=== PATIENT | female | born 1955 | race Caucasian/White ===

== ENCOUNTER 2018-07-05 09:39 | Outpatient (CLI) | payer BC, OTHER ==
[2018-07-05 12:44] LABS: BASOPHILS % (AUTO) 0.6 %; EOSINOPHILS # (AUTO) 0.1 10^3/uL (0.0-0.7); EOSINOPHILS % (AUTO) 1.2 %; HGB - HEMOGLOBIN 13.7 g/dL (12.0-16.0); LYMPHOCYTES # (AUTO) 2.2 10^3/uL (1.5-3.5); LYMPHOCYTES % (AUTO) 33.7 %; MEAN CORPUSCULAR HEMOGLOBIN 29.5 pg (27.0-31.0); MEAN CORPUSCULAR HGB CONC 33.6 g/dL (32.0-36.0); MEAN CORPUSCULAR VOLUME 87.8 fL (81.0-99.0); MEAN PLATELET VOLUME 9.1 fL (7.9-10.8); MONOCYTES # (AUTO) 0.4 10^3/uL (0.0-1.0); MONOCYTES % (AUTO) 6.1 %; NEUTROPHILS # (AUTO) 3.8 10^3/uL (1.5-6.6); NEUTROPHILS % (AUTO) 58.4 %; PLT - PLATELET COUNT 264 10^3/uL (130-450); RED BLOOD COUNT 4.66 10^6/uL (4.20-5.40); RED CELL DISTRIBUTION WIDTH 14.4 % (12.0-15.0); WHITE BLOOD COUNT 6.4 x10^3/uL (4.8-10.8)
[2018-07-05 13:00] LABS: BUN - BLOOD UREA NITROGEN 8 mg/dL (6-20); CALCIUM 9.3 mg/dL (8.5-10.3); CARBON DIOXIDE - CO2 28 mmol/L (21-32); CHLORIDE 103 mmol/L (101-111); CHOL/HDL RATIO 2.8 (<4.4); CHOLESTEROL 202 mg/dL; CREATININE 0.5 mg/dL (0.4-1.0); GFR - MDRD 125 (>89); GLUCOSE 87 mg/dL (70-100); HDL CHOLESTEROL 73 mg/dL; LDL CHOLESTEROL,CALCULATED 114 mg/dL; LDL/HDL RATIO 1.6 (<4.4); SODIUM 140 mmol/L (135-145); VLDL CHOLESTEROL 15 mg/dL
[2018-07-06 12:40] LABS: HEPATITIS C ANTIBODY NON-REACTIVE (NON-REACTIVE)
== END 2018-07-05 09:40 | disposition home or self-care (01) ==
LOC: LAB.N 09:39
PROVIDERS: ATTEND Physician Assistant Medical
DX: Z00.00 Encounter for general adult medical examination without abnormal findings (principal); R03.0 Elevated blood-pressure reading, without diagnosis of hypertension
CPT/HCPCS: 36415; 80048; 80061; 83721; 84443; 85025; 86803

== ENCOUNTER 2018-10-11 16:56 | Outpatient (CLI) | payer OTHER | END 2018-10-11 23:59 | LOC: RT.N 16:56 | PROVIDERS: ATTEND Physician Assistant Medical | DX: I49.9 Cardiac arrhythmia, unspecified (principal) | CPT/HCPCS: 93005 ==

== ENCOUNTER 2018-10-12 09:59 | Outpatient (CLI) | payer OTHER ==
[2018-10-12 12:40] LABS: BASOPHILS # (AUTO) 0.1 10^3/uL (0.0-0.1); BASOPHILS % (AUTO) 0.8 %; EOSINOPHILS # (AUTO) 0.1 10^3/uL (0.0-0.7); EOSINOPHILS % (AUTO) 1.3 %; HGB - HEMOGLOBIN 13.3 g/dL (12.0-16.0); LYMPHOCYTES # (AUTO) 2.2 10^3/uL (1.5-3.5); LYMPHOCYTES % (AUTO) 25.4 %; MEAN CORPUSCULAR HEMOGLOBIN 29.1 pg (27.0-31.0); MEAN CORPUSCULAR HGB CONC 33.4 g/dL (32.0-36.0); MEAN PLATELET VOLUME 9.4 fL (7.9-10.8); MONOCYTES # (AUTO) 0.5 10^3/uL (0.0-1.0); MONOCYTES % (AUTO) 5.8 %; NEUTROPHILS # (AUTO) 5.9 10^3/uL (1.5-6.6); NEUTROPHILS % (AUTO) 66.7 %; PLT - PLATELET COUNT 299 10^3/uL (130-450); RED BLOOD COUNT 4.58 10^6/uL (4.20-5.40); RED CELL DISTRIBUTION WIDTH 14.3 % (12.0-15.0); WHITE BLOOD COUNT 8.8 x10^3/uL (4.8-10.8)
[2018-10-12 13:41] LABS: ALBUMIN 4.5 g/dL (3.2-5.5); ALBUMIN/GLOBULIN RATIO 1.4 (1.0-2.2); BILIRUBIN,TOTAL 0.3 mg/dL (0.2-1.0); CALCIUM 9.5 mg/dL (8.5-10.3); CREATININE 0.6 mg/dL (0.4-1.0); TOTAL PROTEIN 7.7 g/dL (6.7-8.2)
== END 2018-10-12 23:59 | disposition home or self-care (01) ==
LOC: LAB.N 09:59
PROVIDERS: ATTEND Physician Assistant Medical
DX: I51.7 Cardiomegaly (principal)
CPT/HCPCS: 36415; 80053; 83880; 85025

== ENCOUNTER 2018-10-16 10:26 | Outpatient (CLI) | payer OTHER | END 2018-10-16 10:27 | disposition home or self-care (01) | LOC: DI 10:26 | PROVIDERS: ATTEND Physician Assistant Medical | DX: I51.7 Cardiomegaly (principal); I49.9 Cardiac arrhythmia, unspecified | CPT/HCPCS: 93306 ==

== ENCOUNTER 2020-04-28 08:10 | Outpatient (CLI) | payer OTHER ==
[2020-04-28 12:10] LABS: BASOPHILS % (AUTO) 0.5 %; EOSINOPHILS # (AUTO) 0.1 10^3/uL (0.0-0.7); EOSINOPHILS % (AUTO) 0.7 %; HGB - HEMOGLOBIN 13.5 g/dL (12.0-16.0); MEAN CORPUSCULAR HEMOGLOBIN 28.3 pg (27.0-31.0); MEAN CORPUSCULAR HGB CONC 31.1 g/dL (32.0-36.0); MEAN PLATELET VOLUME 10.9 fL (7.9-10.8); MONOCYTES # (AUTO) 0.4 10^3/uL (0.0-1.0); MONOCYTES % (AUTO) 5.1 %; NEUTROPHILS # (AUTO) 5.7 10^3/uL (1.5-6.6); NEUTROPHILS % (AUTO) 69.5 %; PLT - PLATELET COUNT 298 10^3/uL (130-450); RED BLOOD COUNT 4.77 10^6/uL (4.20-5.40); RED CELL DISTRIBUTION WIDTH 13.7 % (12.0-15.0); WHITE BLOOD COUNT 8.2 x10^3/uL (4.8-10.8)
[2020-04-28 12:24] LABS: ALBUMIN 4.5 g/dL (3.2-5.5); ALBUMIN/GLOBULIN RATIO 1.5 (1.0-2.2); ALKALINE PHOSPHATASE 83 IU/L (42-121); ALT ALANINE AMINOTRANSFERASE 21 IU/L (10-60); AST ASPARTATE AMINOTRANSFERASE 22 IU/L (10-42); BILIRUBIN,TOTAL 0.6 mg/dL (0.2-1.0); BUN - BLOOD UREA NITROGEN 9 mg/dL (6-20); CALCIUM 9.5 mg/dL (8.5-10.3); CARBON DIOXIDE - CO2 29 mmol/L (21-32); CHLORIDE 103 mmol/L (101-111); CHOL/HDL RATIO 3.2 (<4.4); CHOLESTEROL 248 mg/dL; CREATININE 0.6 mg/dL (0.4-1.0); GLUCOSE 93 mg/dL (70-100); HDL CHOLESTEROL 78 mg/dL; LDL CHOLESTEROL,CALCULATED 156 mg/dL; SODIUM 141 mmol/L (135-145); TOTAL PROTEIN 7.6 g/dL (6.7-8.2); VLDL CHOLESTEROL 14 mg/dL
== END 2020-04-28 23:59 | disposition home or self-care (01) ==
LOC: LAB.WCP 08:10
PROVIDERS: ATTEND Nurse Practitioner Family
DX: Z00.00 Encounter for general adult medical examination without abnormal findings (principal)
CPT/HCPCS: 36415; 80053; 80061; 83721; 84443; 85025

== ENCOUNTER 2020-12-25 08:00 | Outpatient (CLI) | payer OTHER ==
[2020-12-25 17:51] LABS: BASOPHILS # (AUTO) 0.1 10^3/uL (0.0-0.1); BASOPHILS % (AUTO) 0.6 %; EOSINOPHILS # (AUTO) 0.2 10^3/uL (0.0-0.7); EOSINOPHILS % (AUTO) 2.3 %; HCT - HEMATOCRIT 42.2 % (37.0-47.0); HGB - HEMOGLOBIN 13.1 g/dL (12.0-16.0); LYMPHOCYTES # (AUTO) 2.3 10^3/uL (1.5-3.5); LYMPHOCYTES % (AUTO) 29.8 %; MEAN CORPUSCULAR HEMOGLOBIN 28.5 pg (27.0-31.0); MEAN CORPUSCULAR VOLUME 91.7 fL (81.0-99.0); MEAN PLATELET VOLUME 11.4 fL (7.9-10.8); MONOCYTES # (AUTO) 0.5 10^3/uL (0.0-1.0); MONOCYTES % (AUTO) 6.3 %; NEUTROPHILS # (AUTO) 4.7 10^3/uL (1.5-6.6); NEUTROPHILS % (AUTO) 60.7 %; PLT - PLATELET COUNT 232 10^3/uL (130-450); RED CELL DISTRIBUTION WIDTH 13.3 % (12.0-15.0); WHITE BLOOD COUNT 7.8 x10^3/uL (4.8-10.8)
[2020-12-25 18:20] LABS: THYROID STIMULATING HORMONE 0.49 uIU/mL (0.34-5.60)
== END 2020-12-25 23:59 | disposition home or self-care (01) ==
LOC: LAB.WCP 08:00
PROVIDERS: ATTEND Nurse Practitioner Family
DX: L64.8 Other androgenic alopecia (principal)
CPT/HCPCS: 36415; 84443; 85025

== ENCOUNTER 2021-03-03 08:00 | Outpatient (CLI) | payer OTHER ==
[2021-03-03 18:19] LABS: BASOPHILS # (AUTO) 0.1 10^3/uL (0.0-0.1); BASOPHILS % (AUTO) 0.6 %; EOSINOPHILS # (AUTO) 0.2 10^3/uL (0.0-0.7); EOSINOPHILS % (AUTO) 1.5 %; HCT - HEMATOCRIT 43.9 % (37.0-47.0); HGB - HEMOGLOBIN 14.1 g/dL (12.0-16.0); LYMPHOCYTES # (AUTO) 2.7 10^3/uL (1.5-3.5); LYMPHOCYTES % (AUTO) 26.6 %; MEAN CORPUSCULAR HGB CONC 32.1 g/dL (32.0-36.0); MEAN CORPUSCULAR VOLUME 90.3 fL (81.0-99.0); MEAN PLATELET VOLUME 10.9 fL (7.9-10.8); MONOCYTES # (AUTO) 0.5 10^3/uL (0.0-1.0); MONOCYTES % (AUTO) 4.8 %; NEUTROPHILS # (AUTO) 6.7 10^3/uL (1.5-6.6); NEUTROPHILS % (AUTO) 66.2 %; PLT - PLATELET COUNT 308 10^3/uL (130-450); RED BLOOD COUNT 4.86 10^6/uL (4.20-5.40); RED CELL DISTRIBUTION WIDTH 13.4 % (12.0-15.0); WHITE BLOOD COUNT 10.1 x10^3/uL (4.8-10.8)
[2021-03-03 18:46] LABS: CREATININE,URINE 41.1 mg/dL; MICROALBUM/CREATININE RATIO,UR 306.6 ug/mg (<30.0); MICROALBUMIN,URINE 12.6 mg/dL (0-300.0)
[2021-03-03 18:52] LABS: THYROID STIMULATING HORMONE 1.1 uIU/mL (0.34-5.60)
[2021-03-03 18:54] LABS: FREE T4 (FREE THYROXINE) 0.94 ng/dL (0.58-1.64)
[2021-03-03 18:58] LABS: FERRITIN 45.9 ng/mL (11.0-306.8)
[2021-03-03 19:03] LABS: % IRON SATURATION 11 % (20-50); IRON 52 ug/dL (28-170); TOTAL IRON BINDING CAPACITY 461 ug/dL (250-450); TRANSFERRIN 329 mg/dL (192-382)
[2021-03-03 19:35] LABS: CRP - C-REACTIVE PROTEIN < 1.0 mg/dL (0-1.0)
== END 2021-03-03 23:59 | disposition home or self-care (01) ==
LOC: LAB.WCP 08:00
PROVIDERS: ATTEND Nurse Practitioner
DX: L64.8 Other androgenic alopecia (principal); R53.83 Other fatigue
CPT/HCPCS: 36415; 82043; 82570; 82728; 83540; 84439; 84443; 84466; 85025; 85651; 86140

== ENCOUNTER 2021-04-23 07:17 | Outpatient (CLI) | payer OTHER ==
--- NOTE | 2021-04-23 15:15 | XRAY Report ---
PROCEDURE: Chest 2 View X-Ray INDICATIONS: COUGH, FEVER TECHNIQUE: 2 view(s) of the chest. COMPARISON: None. FINDINGS: Surgical changes and devices: None. Lungs and pleura: No pleural effusions or pneumothorax. Patchy left basilar opacity is present. Mediastinum: Mediastinal contours are normal. Heart size is normal. Bones and chest wall: No suspicious bony abnormalities. Soft tissues appear unremarkable. Wedge de formity is present at the level of T11 of indeterminate age. IMPRESSION: Patchy left basilar opacity is noted suggestive of pneumonia. Reviewed by: Hoda Long MD on 04/23/2021 3:14 PM PDT Approved by: Hoda Long MD on 04/23/2021 3:14 PM PDT Station ID: [id number]
== END 2021-04-23 23:59 | disposition home or self-care (01) ==
LOC: DI.N 07:17
PROVIDERS: ATTEND Family Medicine
DX: U07.1 COVID-19 (principal)

== ENCOUNTER 2021-05-11 08:58 | Outpatient (CLI) | payer OTHER ==
--- NOTE | 2021-05-11 10:01 | XRAY Report ---
PROCEDURE: Chest 2 View X-Ray INDICATIONS: COUGH TECHNIQUE: 2 view(s) of the chest. COMPARISON: None. FINDINGS: Surgical changes and devices: None. Lungs and pleura: No pleural effusions or pneumothorax. Chronic emphysematous changes are noted in b ilateral lung [place] with increased interstitial reticular lung markings. Subtle opacities at bilater al lung bases are seen suggestive of bibasilar atelectasis/small infiltrates. Mediastinum: Mediastinal contours are normal. Heart size is normal. Bones and chest wall: No suspicious bony abnormalities. Soft tissues appear unremarkable. IMPRESSION: COPD and suggestion of bibasilar small infiltrates/atelectasis. No pleural effusion or p neumothorax. Reviewed by: Chad Carrasco MD on 05/11/2021 10:00 AM PDT Approved by: Chad Carrasco MD on 05/11/2021 10:00 AM PDT Station ID: [id number]
== END 2021-05-11 23:59 | disposition home or self-care (01) ==
LOC: DI.N 08:58
PROVIDERS: ATTEND Family Medicine
DX: J44.9 Chronic obstructive pulmonary disease, unspecified (principal)

== ENCOUNTER 2021-06-10 12:26 | Outpatient (CLI) | payer OTHER ==
[2021-06-10 17:45] LABS: BASOPHILS # (AUTO) 0.1 10^3/uL (0.0-0.1); BASOPHILS % (AUTO) 0.5 %; EOSINOPHILS # (AUTO) 0.4 10^3/uL (0.0-0.7); HCT - HEMATOCRIT 35.7 % (37.0-47.0); LYMPHOCYTES # (AUTO) 1.5 10^3/uL (1.5-3.5); LYMPHOCYTES % (AUTO) 7.9 %; MEAN CORPUSCULAR HEMOGLOBIN 27.8 pg (27.0-31.0); MEAN CORPUSCULAR HGB CONC 30.8 g/dL (32.0-36.0); MEAN CORPUSCULAR VOLUME 90.4 fL (81.0-99.0); MEAN PLATELET VOLUME 10.4 fL (7.9-10.8); MONOCYTES # (AUTO) 0.7 10^3/uL (0.0-1.0); MONOCYTES % (AUTO) 3.7 %; NEUTROPHILS # (AUTO) 16.4 10^3/uL (1.5-6.6); NEUTROPHILS % (AUTO) 85.1 %; PLT - PLATELET COUNT 598 10^3/uL (130-450); RED BLOOD COUNT 3.95 10^6/uL (4.20-5.40); RED CELL DISTRIBUTION WIDTH 14.7 % (12.0-15.0); WHITE BLOOD COUNT 19.3 x10^3/uL (4.8-10.8)
[2021-06-10 18:09] LABS: ALBUMIN 3.6 g/dL (3.2-5.5); ALBUMIN/GLOBULIN RATIO 0.8 (1.0-2.2); BILIRUBIN,TOTAL 0.5 mg/dL (0.2-1.0); CALCIUM 9.5 mg/dL (8.5-10.3); CREATININE 0.5 mg/dL (0.4-1.0); POTASSIUM 4.3 mmol/L (3.5-5.0)
[2021-06-10 18:21] LABS: THYROID STIMULATING HORMONE 0.46 uIU/mL (0.34-5.60)
== END 2021-06-10 23:59 | disposition home or self-care (01) ==
LOC: LAB.WCP 12:26
PROVIDERS: ATTEND Family Medicine
DX: R06.09 Other forms of dyspnea (principal); R60.9 Edema, unspecified
CPT/HCPCS: 36415; 80053; 83880; 84443; 85025; 85379

== ENCOUNTER 2021-06-11 07:50 | Emergency (ER) | payer OTHER ==
[2021-06-11] MEDS ORDERED: SODIUM CHLORIDE 0.9% 1,000 ML IV STA (08:34)
[2021-06-11] MEDS ORDERED: IOVERSOL 320 100 ML VIAL IVP ONE ×2 (08:45→11:26)
[2021-06-11 09:05] LABS: BASOPHILS # (AUTO) 0.1 10^3/uL (0.0-0.1); BASOPHILS % (AUTO) 0.6 %; EOSINOPHILS # (AUTO) 0.3 10^3/uL (0.0-0.7); EOSINOPHILS % (AUTO) 1.7 %; HCT - HEMATOCRIT 36.1 % (37.0-47.0); HGB - HEMOGLOBIN 11.3 g/dL (12.0-16.0); LYMPHOCYTES # (AUTO) 1.6 10^3/uL (1.5-3.5); LYMPHOCYTES % (AUTO) 10.2 %; MEAN CORPUSCULAR HEMOGLOBIN 28.1 pg (27.0-31.0); MEAN CORPUSCULAR HGB CONC 31.3 g/dL (32.0-36.0); MEAN CORPUSCULAR VOLUME 89.8 fL (81.0-99.0); MEAN PLATELET VOLUME 10.5 fL (7.9-10.8); MONOCYTES # (AUTO) 0.8 10^3/uL (0.0-1.0); MONOCYTES % (AUTO) 5.1 %; NEUTROPHILS % (AUTO) 81.9 %; PLT - PLATELET COUNT 493 10^3/uL (130-450); RED BLOOD COUNT 4.02 10^6/uL (4.20-5.40); RED CELL DISTRIBUTION WIDTH 14.7 % (12.0-15.0); WHITE BLOOD COUNT 15.9 x10^3/uL (4.8-10.8)
[2021-06-11 09:12] LABS: INR 1.1 (0.8-1.2); PT - PROTHROMBIN TIME 12.7 secs (9.9-12.6)
--- NOTE | 2021-06-11 09:15 | ED Physician Documentation ---
History of Present Illness - Stated complaint Stated Complaint: LEG SWELLING/SENT BY DR - Chief complaint Chief Complaint: General - History obtained from History obtained from: Patient - Additonal information Additional information: Patient is a 65-year-old female presenting to the emergency department today with complaint of left lower extremity swelling as well as persistent cough and chest discomfort. Patient is a past medical history significant for chronic lower extremity swelling. Reports has had worsening swelling in the left lower extremity compared to the right. Also reports was diagnosed with the novel coronavirus which was complicated by Covid pneumonia in early April. States since that time has had persistent nonproductive cough which has also had intermittent episodes of chest pressure associated with coughing. Was seen by Dr. Noyola yesterday and had labs drawn which demonstrated a significant leukocytosis as well as a positive D-dimer and was told to come in to the emergency department. Reports today she otherwise feels well and denies any specific shortness of breath, chest pain, chest pressure, hemoptysis. 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 Also reports a daily topical steroid use for alopecia but denies taking any other medications. Reports sensitivity to chemicals but denies any specific allergic reactions in the past to medications or contrast agents. Otherwise denies for any fever, chills, headache, blurred vision, abdominal pain, nausea, vomiting, diarrhea, constipation Review of Systems Ten Systems: 10 systems reviewed and negative Constitutional: denies: Fever Eyes: denies: Loss of vision Ears: denies: Loss of hearing Nose: denies: Rhinorrhea / runny nose Cardiac: reports: Chest pain / pressure Respiratory: reports: Cough. 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), Other Other Past Medical History: chronic bilateral lower leg edema, placentia previa - Present Medications Home Medications: Ambulatory Orders Medication Instructions Recorded Confirmed Azithromycin [Zithromax] 250 mg PO DAILY #4 tablet 06/11/21 Benzonatate [Tessalon] 200 mg PO TID PRN #30 cap 06/11/21 - Allergies Allergies/Adverse Reactions: Allergies Allergy/AdvReac Type Severity Reaction Status Date / Time No Known Drug Allergies Allergy Verified 06/11/21 08:02 - Social History Does the pt smoke?: No Smoking Status: Never smoker Does the pt drink ETOH?: No Does the pt have substance abuse?: No - Immunizations Immunizations are current?: Yes PD ED PE NORMAL - Vitals Vital signs reviewed: Yes (Tachycardic) - General General: Alert and oriented X 3, Other - HEENT HEENT: Atraumatic, PERRL, EOMI, Ears normal, Moist mucous membranes - Neck Neck: Supple, no meningeal sign, No bony TTP - Cardiac Cardiac: RRR, No murmur, No gallop, No rub, Strong equal pulses - Respiratory Respiratory: No respiratory distress, Clear bilaterally - Abdomen Abdomen: Normal bowel sounds, Soft - Female Female : Deferred - Rectal Rectal: Deferred - Derm Derm: Normal color - Extremities Extremities: No deformity - Neuro Neuro: Alert and oriented X 3, 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, No motor deficit Eye Opening: Spontaneous Motor: Obeys Commands Verbal: Oriented GCS Score: 15 - Psych Psych: Normal mood Results - Vitals Vitals: Vital Signs - 24 hr 06/11/21 06/11/21 07:53 11:39 Temperature 36.9 C Heart Rate 122 H 102 H Respiratory 15 18 Rate Blood Pressure 146/71 H 155/79 H O2 Saturation 99 97 Oxygen O2 Source Room air - EKG (time done) No standard instances Rate: Rate (enter#) (109) Rhythm: NSR [place]: Normal Intervals: Normal SD QRS: Normal Ischemia: Normal ST segments Computer interpretation: Agree with computer - Labs Labs: Laboratory Tests 06/11/21 06/11/21 06/11/21 08:50 08:50 08:50 WBC 15.9 H RBC 4.02 L Hgb 11.3 L Hct 36.1 L MCV 89.8 MCH 28.1 MCHC 31.3 L RDW 14.7 Plt Count 493 H MPV 10.5 Neut # (Auto) 13.0 H Lymph # (Auto) 1.6 [place] # (Auto) 0.8 Eos # (Auto) 0.3 Baso # (Auto) 0.1 Absolute Nucleated RBC 0.00 Nucleated RBC % 0.0 PT 12.7 H INR 1.1 Sodium 138 Potassium 3.9 Chloride 103 Carbon Dioxide 24 Anion Gap 11.0 BUN 14 Creatinine 0.5 Estimated GFR (MDRD) 124 Glucose 82 Lactic Acid Calcium 9.2 Magnesium 2.1 Total Bilirubin 0.6 AST 28 ALT 20 Alkaline Phosphatase 87 Troponin I High Sens B-Natriuretic Peptide Total Protein 7.8 Albumin 3.7 Globulin 4.1 Albumin/Globulin Ratio 0.9 L Lipase 40 TSH Urine Color Urine Clarity Urine pH Ur Specific [place] Urine Protein Urine Glucose (UA) Urine Ketones Urine Occult Blood Urine Nitrite Urine Bilirubin Urine Urobilinogen Ur Leukocyte Esterase Ur Microscopic Review Urine Culture Comments 06/11/21 06/11/21 06/11/21 08:50 08:50 08:50 WBC RBC Hgb Hct MCV MCH MCHC RDW Plt Count MPV Neut # (Auto) Lymph # (Auto) [place] # (Auto) Eos # (Auto) Baso # (Auto) Absolute Nucleated RBC Nucleated RBC % PT INR Sodium Potassium Chloride Carbon Dioxide Anion Gap BUN Creatinine Estimated GFR (MDRD) Glucose Lactic Acid 1.0 Calcium Magnesium Total Bilirubin AST ALT Alkaline Phosphatase Troponin I High Sens B-Natriuretic Peptide 57 Total Protein Albumin Globulin Albumin/Globulin Ratio Lipase TSH 0.43 Urine Color Urine Clarity Urine pH Ur Specific [place] Urine Protein Urine Glucose (UA) Urine Ketones Urine Occult Blood Urine Nitrite Urine Bilirubin Urine Urobilinogen Ur Leukocyte Esterase Ur Microscopic Review Urine Culture Comments 06/11/21 06/11/21 08:50 11:00 WBC RBC Hgb Hct MCV MCH MCHC RDW Plt Count MPV Neut # (Auto) Lymph # (Auto) [place] # (Auto) Eos # (Auto) Baso # (Auto) Absolute Nucleated RBC Nucleated RBC % PT INR Sodium Potassium Chloride Carbon Dioxide Anion Gap BUN Creatinine Estimated GFR (MDRD) Glucose Lactic Acid Calcium Magnesium Total Bilirubin AST ALT Alkaline Phosphatase Troponin I High Sens 3.3 B-Natriuretic Peptide Total Protein Albumin Globulin Albumin/Globulin Ratio Lipase TSH Urine Color YELLOW Urine Clarity CLEAR Urine pH 6.0 Ur Specific [place] <=1.005 Urine Protein NEGATIVE Urine Glucose (UA) NEGATIVE Urine Ketones TRACE Urine Occult Blood TRACE-INTA Urine Nitrite NEGATIVE Urine Bilirubin NEGATIVE Urine Urobilinogen 0.2 (NORMAL) Ur Leukocyte Esterase NEGATIVE Ur Microscopic Review NOT INDICATED Urine Culture Comments NOT INDICATED PD MEDICAL DECISION MAKING - ED course Complexity details: reviewed old records, reviewed results, re-evaluated patient, d/w patient ED course: Patient presents referred by their primary care physician for an elevated white blood cell count and a positive D-dimer in a setting of chronic lower extremity swelling as well as recent COVID-19 pneumonia. Patient had a low level tachycardia here in the department but was otherwise afebrile, hemodynamically stable and in no acute distress. Had normal respirations throughout all of her lung [place]. Her physical exam did demonstrate some mild lower extremity edema left greater than right. Did report a history of systemic steroid use greater than 1 month ago for dermatologic condition as well as ongoing topical steroid use along the lower aspect of her scalp for the same condition however given that it was greater than 1 month ago since her last use I do not believe that this could have caused her current leukocytosis. Previous labs reviewed demonstrated a leukocytosis greater than 20 yesterday. I did obtain labs in the emergency department today which demonstrated downtrending white blood cell count. The remainder of her lab work was within normal limits. Ultrasonography of her lower extremities bilaterally was negative for any DVT and CT imaging of her chest demonstrated lower bibasilar pneumonia. Did discuss all these findings directly with the patient as well as the importance of interval follow- up imaging in order to evaluate for any possible underlying neoplastic process. She was given azithromycin while in the emergency department. She was observed in the emergency department for several hours and at no time demonstrated any significant respiratory distress. She will be discharged with a course of antibiotics and instructions to follow-up carefully with primary care or return to the emergency department for new or worsening symptoms. Departure - Departure Disposition: 01 Home, Self Care Clinical Impression: Pneumonia Condition: Good Instructions: Pneumonia Dc Prescriptions: Benzonatate [Tessalon] 200 mg PO TID PRN #30 cap PRN Reason: Cough Azithromycin [Zithromax] 250 mg PO DAILY #4 tablet Comments: Thank you for allowing us to care for you today at [facility]. I would like you to begin a course of oral antibiotics. This will be sent to [facility] in [place] for you to pick up attendant later this afternoon. You will need to take your next dose tomorrow. Please follow-up carefully with your primary care doctor. If it anytime you have any new or worsening symptoms please not hesitate to return to the emergency department. Discharge Date/Time: 06/11/21 11:52
[2021-06-11 09:24] LABS: ALBUMIN 3.7 g/dL (3.2-5.5); ALBUMIN/GLOBULIN RATIO 0.9 (1.0-2.2); BILIRUBIN,TOTAL 0.6 mg/dL (0.2-1.0); CALCIUM 9.2 mg/dL (8.5-10.3); CREATININE 0.5 mg/dL (0.4-1.0); MAGNESIUM 2.1 mg/dL (1.7-2.8); POTASSIUM 3.9 mmol/L (3.5-5.0); TOTAL PROTEIN 7.8 g/dL (6.7-8.2)
--- NOTE | 2021-06-11 10:12 | Ultrasound Report ---
PROCEDURE: Duplex Ext Veins Bilateral INDICATIONS: Chronic bilateral lower extremity edema. TECHNIQUE: Real-time imaging, as well as color and pulse Doppler interrogation, were performed of the deep veins of both legs from the inguinal ligament to the popliteal fossa. COMPARISON: None. FINDINGS: VASCULATURE: Normal spontaneous flow and phasicity, augmentation and waveforms, and compressibility o f the vessels from the common femoral veins through the calf veins. SOFT TISSUES: No acute abnormality. IMPRESSION: 1.No sonographic evidence of deep venous thrombus. Reviewed by: Miguelito Weeks MD on 06/11/2021 10:11 AM PDT Approved by: Miguelito Weeks MD on 06/11/2021 10:11 AM PDT Station ID: [id number]
--- NOTE | 2021-06-11 10:41 | CT Report ---
PROCEDURE: ANGIO CHEST W/WO INDICATIONS: r/o PE vs PNA CONTRAST: IV CONTRAST: Optiray 320 ml: 80 PO CONTRAST: *NO PO CONTRAST TECHNIQUE: After the administration of intravenous contrast, 2 mm axial images were acquired from the pulmonary apices to the posterior costophrenic angles during the arterial phase. In addition, 1 mm lung kernel and 5 mm soft tissue kernel reconstructions were performed. 3-dimensional coronal oblique maximum int ensity projection (MIP) reformats, 8 mm axial MIP, and 5 mm coronal and sagittal MPR reformats were t hen performed through the thorax. For radiation dose reduction, the following was used: automated exp osure control, adjustment of mA and/or kV according to patient size. COMPARISON: Chest x-ray 05/11/2021. FINDINGS: Image quality: Excellent. Pulmonary arteries: Pulmonary arteries are normal in size, and demonstrate no intraluminal filling d efects to suggest central pulmonary embolism. Lungs and pleura: Patchy areas of consolidation noted in the lung bases bilaterally involving the low er lobes and right middle lobe. Small 1-2 mm punctate calcifications noted in the lungs bilaterally c ompatible sequela of prior granulomatous disease. No pleural effusions or pneumothorax. Central and peripheral airways are patent. Mediastinum: Heart size is normal, without pericardial effusion. Enlarged right hilar and subcarinal mediastinal lymph nodes are noted. Thoracic aorta is normal in caliber and enhancement. Esophagus i s normal in caliber. Small hiatal hernia noted. Bones and chest wall: No suspicious bony lesions. Ribs and thoracic spine appear intact throughout. Spine degenerative disc disease and facet arthropathy are noted. No axillary or supraclavicular yinka nopathy. The thyroid is normal in size and there are no incidental findings. Abdomen: Visualized upper abdominal solid organs appear normal in the early arterial phase of enhanc ement. IMPRESSION: 1. No pulmonary embolus. 2. Bibasilar pneumonia. Recommend follow-up imaging to resolution of the areas of consolidation to ex clude underlying neoplastic process. 3. Right hilar and mediastinal lymphadenopathy which could be reactive or neoplastic. Reviewed by: Yisel Fish MD, PhD on 06/11/2021 9:40 AM [facility] Approved by: Yisel Fish MD, PhD on 06/11/2021 9:40 AM [facility] Station ID: [id number]
[2021-06-11] MEDS ORDERED: AZITHROMYCIN 250 MG TABLET PO STA (10:59)
[2021-06-11 11:16] LABS: BILIRUBIN,URINE NEGATIVE (NEGATIVE); GLUCOSE, URINE (UA) NEGATIVE (NEGATIVE); KETONES,URINE (UA) TRACE mg/dL (NEGATIVE); LEUKOCYTE ESTERASE, URINE NEGATIVE (NEGATIVE); NITRITE,URINE NEGATIVE (NEGATIVE); OCCULT BLOOD,URINE TRACE-INTA (NEGATIVE); PROTEIN,URINE NEGATIVE (NEGATIVE); UROBILINOGEN,URINE 0.2 (NORMAL) E.U./dL (NORMAL)
[2021-06-11 11:18] LABS: CLARITY,URINE CLEAR (CLEAR)
[2021-06-11 12:09] VITALS: BP 153/68
== END 2021-06-11 12:14 | disposition home or self-care (01) ==
LOC: ED 07:50
DX: J18.9 Pneumonia, unspecified organism (principal); D72.829 Elevated white blood cell count, unspecified; Z86.16 Personal history of COVID-19; R00.0 Tachycardia, unspecified
CPT/HCPCS: 36415; 71275; 80053; 81003; 83605; 83690; 83735; 83880; 84443; 84484; 85025; 85610; 93005; 93970; 99284; A9270; Q9967; 81001; 87086

== ENCOUNTER 2021-06-23 12:16 | Outpatient (CLI) | payer OTHER ==
[2021-06-23 18:23] LABS: BASOPHILS # (AUTO) 0.1 10^3/uL (0.0-0.1); BASOPHILS % (AUTO) 0.9 %; EOSINOPHILS # (AUTO) 0.5 10^3/uL (0.0-0.7); EOSINOPHILS % (AUTO) 3.5 %; HCT - HEMATOCRIT 38.5 % (37.0-47.0); HGB - HEMOGLOBIN 11.7 g/dL (12.0-16.0); LYMPHOCYTES # (AUTO) 2.1 10^3/uL (1.5-3.5); LYMPHOCYTES % (AUTO) 15.3 %; MEAN CORPUSCULAR HEMOGLOBIN 27.5 pg (27.0-31.0); MEAN CORPUSCULAR HGB CONC 30.4 g/dL (32.0-36.0); MEAN CORPUSCULAR VOLUME 90.6 fL (81.0-99.0); MEAN PLATELET VOLUME 10.5 fL (7.9-10.8); MONOCYTES # (AUTO) 0.8 10^3/uL (0.0-1.0); MONOCYTES % (AUTO) 5.6 %; NEUTROPHILS # (AUTO) 10.3 10^3/uL (1.5-6.6); NEUTROPHILS % (AUTO) 74.3 %; PLT - PLATELET COUNT 479 10^3/uL (130-450); RED BLOOD COUNT 4.25 10^6/uL (4.20-5.40); RED CELL DISTRIBUTION WIDTH 15.4 % (12.0-15.0); WHITE BLOOD COUNT 13.8 x10^3/uL (4.8-10.8)
== END 2021-06-23 23:59 | disposition home or self-care (01) ==
LOC: LAB.WCP 12:16
PROVIDERS: ATTEND Family Medicine
DX: D72.829 Elevated white blood cell count, unspecified (principal)
CPT/HCPCS: 36415; 85025

== ENCOUNTER 2023-03-15 15:05 | Outpatient (CLI) | payer MEDICARE ==
[2023-03-15] MEDS ORDERED: ALBUTEROL 1 PUFF INH STA (18:02)
== END 2023-03-15 15:06 | disposition home or self-care (01) ==
LOC: RT 15:05
PROVIDERS: ATTEND Nurse Practitioner
DX: R06.02 Shortness of breath (principal)
CPT/HCPCS: 94060; 94727; 94729

== ENCOUNTER 2023-07-19 07:24 | Outpatient (CLI) | payer MEDICARE ==
[2023-07-19 11:38] LABS: BASOPHILS # (AUTO) 0.1 10^3/uL (0.0-0.1); BASOPHILS % (AUTO) 0.6 %; EOSINOPHILS % (AUTO) 0.4 %; HCT - HEMATOCRIT 43.5 % (37.0-47.0); HGB - HEMOGLOBIN 13.5 g/dL (12.0-16.0); LYMPHOCYTES # (AUTO) 2.7 10^3/uL (1.5-3.5); LYMPHOCYTES % (AUTO) 28.8 %; MEAN CORPUSCULAR HEMOGLOBIN 27.8 pg (27.0-31.0); MEAN CORPUSCULAR VOLUME 89.5 fL (81.0-99.0); MEAN PLATELET VOLUME 11.5 fL (7.9-10.8); MONOCYTES # (AUTO) 0.5 10^3/uL (0.0-1.0); MONOCYTES % (AUTO) 5.2 %; NEUTROPHILS % (AUTO) 64.7 %; PLT - PLATELET COUNT 305 10^3/uL (130-450); RED BLOOD COUNT 4.86 10^6/uL (4.20-5.40); RED CELL DISTRIBUTION WIDTH 13.9 % (12.0-15.0); WHITE BLOOD COUNT 9.3 x10^3/uL (4.8-10.8)
[2023-07-19 12:28] LABS: ALBUMIN 4.8 g/dL (3.2-5.5); ALBUMIN/GLOBULIN RATIO 1.4 (1.0-2.2); ALKALINE PHOSPHATASE 90 IU/L (42-121); ALT ALANINE AMINOTRANSFERASE 19 IU/L (10-60); AST ASPARTATE AMINOTRANSFERASE 25 IU/L (10-42); BILIRUBIN,TOTAL 0.3 mg/dL (0.2-1.0); BUN - BLOOD UREA NITROGEN 11 mg/dL (6-20); CALCIUM 10.1 mg/dL (8.5-10.3); CARBON DIOXIDE - CO2 27 mmol/L (21-32); CHLORIDE 105 mmol/L (101-111); CHOL/HDL RATIO 3.4 (<4.4); CHOLESTEROL 258 mg/dL; CREATININE 0.5 mg/dL (0.6-1.3); GFR - MDRD 123 (>89); GLUCOSE 95 mg/dL (74-104); HDL CHOLESTEROL 75 mg/dL; LDL CHOLESTEROL,CALCULATED 157 mg/dL; LDL/HDL RATIO 2.1 (<4.4); POTASSIUM 3.5 mmol/L (3.5-4.5); SODIUM 141 mmol/L (135-145); TOTAL PROTEIN 8.3 g/dL (6.4-8.9); TRIGLYCERIDES 128 mg/dL (48-352); VLDL CHOLESTEROL 26 mg/dL
[2023-07-19 12:37] LABS: THYROID STIMULATING HORMONE 0.71 uIU/mL (0.34-5.60)
== END 2023-07-19 07:25 | disposition home or self-care (01) ==
LOC: LAB.N 07:24
PROVIDERS: ATTEND Nurse Practitioner
DX: E78.5 Hyperlipidemia, unspecified (principal); R06.02 Shortness of breath; L64.8 Other androgenic alopecia
CPT/HCPCS: 36415; 80053; 80061; 83721; 84443; 85025

== ENCOUNTER 2023-11-04 08:00 | Outpatient (CLI) | payer MEDICARE | END 2023-11-04 08:01 | disposition home or self-care (01) | LOC: LAB.N 08:00 | PROVIDERS: ATTEND Physician Assistant | DX: R05.1 Acute cough (principal) ==

== ENCOUNTER 2023-11-04 08:00 | Outpatient (CLI) | payer MEDICARE ==
--- NOTE | 2023-11-04 20:18 | XRAY Report ---
PROCEDURE: Chest 2V INDICATIONS: ACUTE COUGH TECHNIQUE: 2 views of the chest were acquired. COMPARISON: 06/11/2021, 05/11/2021. FINDINGS: Surgical changes and devices: None. Lungs and pleura: New peripheral right airspace opacity measuring 2 cm. Mediastinum: Mediastinal contours appear normal. Heart size is normal. Bones and chest wall: No suspicious bony lesions. Overlying soft tissues appear unremarkable. IMPRESSION: New 2 cm right peripheral airspace opacity. Differential includes focus of infection versus malignanc y. Recommend chest CT for complete characterization. Reviewed by: John Walker MD on 11/04/2023 8:16 PM PDT Approved by: John Walker MD on 11/04/2023 8:16 PM PDT Station ID: [id number]
== END 2023-11-04 08:15 | disposition home or self-care (01) ==
LOC: DI.N 08:00
PROVIDERS: ATTEND Physician Assistant Medical
DX: R05.1 Acute cough (principal); R91.8 Other nonspecific abnormal finding of lung field

== ENCOUNTER 2023-12-12 08:17 | Outpatient (CLI) | payer MEDICARE ==
[2023-12-12] MEDS ORDERED: iohexoL-300 100 ML VIAL ONE (09:07)
[2023-12-12 09:08] LABS: CHOL/HDL RATIO 3.2 (<4.4); CHOLESTEROL 235 mg/dL; CREATININE 0.5 mg/dL (0.6-1.3); HDL CHOLESTEROL 73 mg/dL; LDL CHOLESTEROL,CALCULATED 145 mg/dL; TRIGLYCERIDES 84 mg/dL (48-352); VLDL CHOLESTEROL 17 mg/dL
[2023-12-12] MEDS: iohexoL-300 100 ML VIAL IVP ONE (10:48)
--- NOTE | 2023-12-12 13:05 | CT Report ---
PROCEDURE: Chest W INDICATIONS: ABN CHEST XRAY CONTRAST: Omni 300 100ml TECHNIQUE: After the administration of intravenous contrast, a CT scan of the chest was performed. Images were recorded and evaluated at appropriate window settings. Reformats: axial MIP of the chest, coronal and sagittal. For radiation dose reduction, the following was used: automated exposure control, adjustme nt of mA and/or kV according to patient size. COMPARISON: X-ray 11/04/2023, CT 06/11/2021. FINDINGS: Image quality: Diagnostic. Chest wall and lower neck: No thyroid nodule which requires sonographic follow up. No axillary or sup raclavicular adenopathy by size. Lungs and pleura: No consolidation. No pleural effusions. No pneumothorax. Biapical scarring. A few and bronchial secretions are present. Wedge-shaped focus of groundglass in the peripheral right lower lobe (series 4, image 74). Additional more subtle region of groundglass in the posterior left lower lobe (series 4, image 54). Centrilobular and tree-in-bud nodules within the dependent lower lobes. Mediastinum: Heart size is normal. No pericardial effusion. No large vessel abnormality. No mediastin al adenopathy by size criteria. Moderate hiatal hernia with diffuse esophageal wall thickening. Bones: No aggressive osseous abnormality. Upper Abdomen: Unremarkable. IMPRESSION: 2 wedge-shaped foci of groundglass in the lower lobes, likely postinfectious/inflammatory. Recommend 6 month follow-up to ensure resolution. Additional centrilobular and tree-in-bud nodules in the lower lobes, likely indicating infectious or inflammatory bronchiolitis. Attention on follow-up. Moderate hiatal hernia with diffuse esophageal wall thickening, suggesting esophagitis. Recommend cor relation with symptoms. Reviewed by: John Walker MD on 12/12/2023 1:04 PM PDT Approved by: John Walker MD on 12/12/2023 1:04 PM PDT Station ID: [id number]
== END 2023-12-12 08:18 | disposition home or self-care (01) ==
LOC: LAB 08:17
PROVIDERS: ATTEND Physician Assistant Medical
DX: E78.5 Hyperlipidemia, unspecified (principal); R91.8 Other nonspecific abnormal finding of lung field; R05.1 Acute cough; K44.9 Diaphragmatic hernia without obstruction or gangrene
CPT/HCPCS: 36415; 71260; 80061; 82565; Q9967; 83721

== ENCOUNTER 2023-12-28 09:45 | Outpatient (CLI) | payer MEDICARE ==
[2023-12-28 11:59] LABS: ALBUMIN 4.5 g/dL (3.2-5.5); ALBUMIN/GLOBULIN RATIO 1.6 (1.0-2.2); BILIRUBIN,TOTAL 0.3 mg/dL (0.2-1.0); CALCIUM 9.9 mg/dL (8.5-10.3); CREATININE 0.6 mg/dL (0.6-1.3); TOTAL PROTEIN 7.3 g/dL (6.4-8.9)
== END 2023-12-28 09:46 | disposition home or self-care (01) ==
LOC: LAB.N 09:45
PROVIDERS: ATTEND Nurse Practitioner
DX: T50.905A Adverse effect of unspecified drugs, medicaments and biological substances, initial encounter (principal)
CPT/HCPCS: 36415; 80053

== ENCOUNTER 2024-01-30 08:21 | Outpatient (CLI) | payer MEDICARE ==
--- NOTE | 2024-01-30 20:50 | XRAY Report ---
PROCEDURE: Hip w/Pelvis 2-3V LT INDICATIONS: LEFT HIP JOINT PAIN TECHNIQUE: 2 views of the hip were acquired. COMPARISON: None. FINDINGS: Bones: No fractures or dislocations. No suspicious bony lesions. Soft tissues: No suspicious soft tissue calcifications or masses. IMPRESSION: No acute bony abnormality. Reviewed by: Greg Rodriguez MD on 01/30/2024 7:49 PM [facility] Approved by: Greg Rodriguez MD on 01/30/2024 7:49 PM [facility] Station ID: [id number]
--- NOTE | 2024-01-30 20:52 | XRAY Report ---
PROCEDURE: Lumbar Spine 2-3V INDICATIONS: LOW BACK PAIN TECHNIQUE: 3 view(s) of the lumbar spine were acquired. COMPARISON: None. FINDINGS: Bones: Vertebral body height and alignment is maintained. No suspicious bony lesions. Generalized decreased osseous mineralization present. Disc spaces are preserved. The sclerotic facet joints noted lower lumbar spine. Soft tissues: Overlying bowel gas pattern is normal. No suspicious soft tissue calcifications. Aor tic atherosclerotic vascular calcification IMPRESSION: Lower lumbar spine facet arthropathy Reviewed by: Greg Rodriguez MD on 01/30/2024 7:50 PM [facility] Approved by: Greg Rodriguez MD on 01/30/2024 7:50 PM [facility] Station ID: [id number]
== END 2024-01-30 08:22 | disposition home or self-care (01) ==
LOC: DI 08:21
PROVIDERS: ATTEND Nurse Practitioner
DX: M47.816 Spondylosis without myelopathy or radiculopathy, lumbar region (principal); M25.552 Pain in left hip

== ENCOUNTER 2024-02-07 12:48 | Outpatient (CLI) | payer MEDICARE ==
[2024-02-07 17:55] LABS: BASOPHILS # (AUTO) 0.1 10^3/uL (0.0-0.1); BASOPHILS % (AUTO) 0.8 %; EOSINOPHILS # (AUTO) 0.1 10^3/uL (0.0-0.7); EOSINOPHILS % (AUTO) 0.9 %; HGB - HEMOGLOBIN 13.3 g/dL (12.0-16.0); LYMPHOCYTES # (AUTO) 2.7 10^3/uL (1.5-3.5); LYMPHOCYTES % (AUTO) 29.9 %; MEAN CORPUSCULAR HEMOGLOBIN 28.6 pg (27.0-31.0); MEAN CORPUSCULAR HGB CONC 31.7 g/dL (32.0-36.0); MEAN CORPUSCULAR VOLUME 90.3 fL (81.0-99.0); MEAN PLATELET VOLUME 11.7 fL (7.9-10.8); MONOCYTES # (AUTO) 0.6 10^3/uL (0.0-1.0); NEUTROPHILS # (AUTO) 5.4 10^3/uL (1.5-6.6); NEUTROPHILS % (AUTO) 61.2 %; PLT - PLATELET COUNT 249 10^3/uL (130-450); RED BLOOD COUNT 4.65 10^6/uL (4.20-5.40); RED CELL DISTRIBUTION WIDTH 14.2 % (12.0-15.0); WHITE BLOOD COUNT 8.9 x10^3/uL (4.8-10.8)
== END 2024-02-07 12:49 | disposition home or self-care (01) ==
LOC: LAB.N 12:48
PROVIDERS: ATTEND Nurse Practitioner
DX: L64.8 Other androgenic alopecia (principal)
CPT/HCPCS: 36415; 82306; 82607; 82652; 84630; 85025